=== PATIENT | female | born 1955 | race Caucasian/White ===

== ENCOUNTER 2018-03-17 05:33 | Outpatient (CLI) | payer BC ==
[~2018-03-17] VITALS: Ht 154.9 cm; Wt 83.9 kg
[2018-03-17] MEDS ORDERED: HYDR25TA4 PO (08:52)
== END 2018-03-17 09:05 | disposition home or self-care (01) ==
LOC: PREOP 05:33
PROVIDERS: ATTEND Podiatrist Foot & Ankle Surgery
DX: Z01.818 Encounter for other preprocedural examination (principal)

== ENCOUNTER 2018-03-22 05:52 | Day surgery (SDC) | payer BC ==
[~2018-03-22] VITALS: Ht 154.9 cm; Wt 83.9 kg
[~2018-03-22 05:52] MED LIST: HYDR25TA4 PO
--- OUTSIDE RECORDS SUMMARY | 2018-03-22 05:55 | XMS REPORT ---
Author Candelaria Ramsey [facility] Address [address] [place], [place] [id number] Care Team Providers Care Schedule Supervisor Name Role Phone Candelaria Shen PCP Rayshawn Yadav PreferredProvider Allergies and Adverse Reactions Name Reaction Notes Bee Stings swelling Plan of Treatment Planned Activity Comments Planned Date Planned Time Plan/Goal CBC for General Health Panel 03/03/2018 12:00 AM CMP 03/03/2018 12:00 AM LIPID PANEL 03/03/2018 12:00 AM Mammogram, screening, bilateral 03/03/2018 12:00 AM Medications Active Name Start Date Estimated Completion Date SIG Comments hydrochlorothiazide 25 mg oral tablet 07/14/2017 TAKE ONE TABLET BY MOUTH ONCE DAILY Vitamin D3 2,000 unit oral capsule 03/03/2018 04/02/2018 take 1 capsule by oral route daily for 30 days Name Start Date Expiration Date SIG Comments amoxicillin 500 mg oral capsule 09/09/2016 09/19/2016 take 2 capsules by oral route every 12 hours for 10 days Problem List Description Status Onset Hypertension, Benign Essential Active Vital Signs Date Time BP-Sys(mm[Hg] BP-Kimber(mm[Hg]) HR(bpm) RR(rpm) Temp WT HT HC BMI BSA BMI Percentile O2 Sat(%) 03/03/2018 9:14:00 AM 138 mmHg 98 mmHg 73 bpm 18 rpm 98.1 F 192.125 lbs 61 in 36.3013 kg/m 1.9367 m 98 % 03/17/2017 9:05:00 AM 130 mmHg 80 mmHg 128 bpm 16 rpm 100.7 F 191 lbs 61 in 36.09 kg/m2 1.93 m2 95 % 10/11/2015 7:40:00 PM 128 mmHg 88 mmHg 86 bpm 16 rpm 97.3 F 194 lbs 61 in 36.6556 kg/m 1.9461 m 96 % 04/12/2015 8:03:00 PM 140 mmHg 98 mmHg 72 bpm 18 rpm 97.6 F 196.25 lbs 61 in 37.0807 kg/m 1.96 m2 98 % Social History Name Description Comments Tobacco Never smoker Alcohol Light History of Procedures Date Ordered Description Order Status 04/12/2015 12:00 AM X-RAY EXAM OF KNEE 3 Reviewed 04/12/2015 12:00 AM X-RAY EXAM OF ANKLE Reviewed 03/17/2017 12:00 AM INFLUENZA A/B AG EIA Reviewed Results Summary Date and Description Results 03/17/2017 10:15 AM INFLUENZA A & B NO INFLUENZA A OR B DETECTED History Of Immunizations Name Date Admin Mfg Name Mfg Code Trade Name Lot# Route Inj Vis Given Vis Pub CVX Tdap 1999 Not Entered NE Not Entered Not Entered Not Entered 02/23/201802/23/2018 999 Tdap 11/13/2016 sanofi pasteur PMC ADACEL [id number] Intramuscular Right Deltoid 11/13/2016 04/18/2014 115 Influenza 11/13/2016 sanofi pasteur PMC Fluzone Quadrivalent [id number] Intramuscular Left Deltoid 11/13/2016 09/29/2014 150 ZVL 11/13/2016 Merck & Co., Inc. MSD ZOSTAVAX [id number] Subcutaneous Right Arm 11/13/2016 02/23/2018 121 History of Past Illness Name Date of Onset Comments Hypertension, Benign Essential Chronic pain of left knee Apr 12 2015 8:06PM Chronic pain of right ankle Apr 12 2015 8:06PM Essential hypertension Apr 12 2015 8:06PM Hypertension, Benign Essential Oct 11 2015 7:42PM Fever, unspecified fever cause Mar 17 2017 9:07AM Cough Mar 17 2017 9:07AM Influenza-like illness Mar 17 2017 9:07AM Routine health maintenance Mar 03 2018 9:18AM Breast cancer screening Mar 03 2018 9:18AM Colon cancer screening Mar 03 2018 9:18AM Arthritis Mar 03 2018 9:18AM Payers Insurance Name Company Name Plan Name Plan Number Policy Number Policy Group Number [id number] N/A History of Encounters Visit Date Visit Type Provider 03/03/2018 Office visit 03/03/[address] Candelaria Shen DO 03/17/2017 Office visit Rayshawn Yadav APRN 10/11/2015 Office visit Rayshawn Yadav APRN 04/12/2015 Office visit Rayshawn Yadav APRN
--- OUTSIDE RECORDS SUMMARY | 2018-03-22 05:55 | XMS REPORT ---
Author Author Candelaria Shen [facility] Address [address] [place], [place] [address] Care Team Providers Care Canceling And Cutting Control Clerk Name Role Phone Candelaria Shen PCP Rayshawn Yadav PreferredProvider Allergies and Adverse Reactions Name Reaction Notes Bee Stings swelling Plan of Treatment Planned Activity Comments Planned Date Planned Time Plan/Goal Mammogram, screening, bilateral 03/03/2018 12:00 AM US InterValve (SINGLE ORGAN) 03/04/2018 12:00 AM [facility] 03/16/2018 12:00 AM Medications Active Name Start Date Estimated Completion Date SIG Comments hydrochlorothiazide 25 mg oral tablet 07/14/2017 TAKE ONE TABLET BY MOUTH ONCE DAILY Vitamin D3 2,000 unit oral capsule 03/03/2018 04/02/2018 take 1 capsule by oral route daily for 30 days potassium chloride 20 mEq oral tablet extended release 03/03/2018 04/02/2018 take 1 tablet (20 meq) by oral route 2 times per day with food for 30 days Name Start Date Expiration Date SIG Comments amoxicillin 500 mg oral capsule 09/09/2016 09/19/2016 take 2 capsules by oral route every 12 hours for 10 days Problem List Description Status Onset Hypertension, Benign Essential Active Colon cancer screening Active 03/04/2018 Vital Signs Date Time BP-Sys(mm[Hg] BP-Kimber(mm[Hg]) HR(bpm) RR(rpm) Temp WT HT HC BMI BSA BMI Percentile O2 Sat(%) 03/11/2018 8:40:00 AM 124 mmHg 82 mmHg 80 bpm 18 rpm 97.7 F 193.125 lbs 61 in 36.4903 kg/m 1.9417 m 97 % 03/04/2018 11:21:00 AM 156 mmHg 80 mmHg 73 bpm 20 rpm 97.2 F 192 lbs 61 in 36.28 kg/m2 1.94 m2 03/03/2018 9:14:00 AM 138 mmHg 98 mmHg 73 bpm 18 rpm 98.1 F 192.125 lbs 61 in 36.30 kg/m2 1.94 m2 98 % 03/17/2017 9:05:00 AM 130 mmHg 80 mmHg 128 bpm 16 rpm 100.7 F 191 lbs 61 in 36.0888 kg/m 1.931 m 95 % 10/11/2015 7:40:00 PM 128 mmHg 88 mmHg 86 bpm 16 rpm 97.3 F 194 lbs 61 in 36.66 kg/m2 1.95 m2 96 % 04/12/2015 8:03:00 PM 140 mmHg 98 mmHg 72 bpm 18 rpm 97.6 F 196.25 lbs 61 in 37.0807 kg/m 1.9574 m 98 % Social History Name Description Comments Tobacco Never smoker Alcohol Light History of Procedures Date Ordered Description Order Status 04/12/2015 12:00 AM X-RAY EXAM OF KNEE 3 Reviewed 04/12/2015 12:00 AM X-RAY EXAM OF ANKLE Reviewed 03/17/2017 12:00 AM INFLUENZA A/B AG EIA Reviewed 03/03/2018 12:00 AM COMPLETE CBC W/AUTO DIFF WBC Returned 03/03/2018 12:00 AM COMPREHEN METABOLIC PANEL Returned 03/03/2018 12:00 AM LIPID PANEL Returned 03/03/2018 12:00 AM COMPREHEN METABOLIC PANEL Returned Results Summary Date and Description Results 03/17/2017 10:15 AM INFLUENZA A & B NO INFLUENZA A OR B DETECTED History Of Immunizations Name Date Admin Mfg Name Mfg Code Trade Name Lot# Route Inj Vis Given Vis Pub CVX Tdap 1999 Not Entered NE Not Entered Not Entered Not Entered 02/23/201802/23/2018 999 Tdap 11/13/2016 sanofi pasteur PMC ADACEL [id number] Intramuscular Right Deltoid 11/13/2016 04/18/2014 115 Influenza 11/13/2016 sanofi pasteur PMC Fluzone Quadrivalent [id number] Intramuscular Left Deltoid 11/13/2016 09/29/2014 150 ZVL 11/13/2016 Merck & Co., Inc. MSD ZOSTAVAX [id number] Subcutaneous Right Arm 11/13/2016 02/23/2018 121 History of Past Illness Name Date of Onset Comments Hypertension, Benign Essential Colon cancer screening 03/04/2018 Chronic pain of left knee Apr 12 [...] 2018 9:18AM Arthritis Mar 03 2018 9:18AM Hyponatremia Mar 03 2018 1:15PM Colon cancer screening Mar 04 2018 11:09AM Alkaline phosphatase elevation Mar 11 2018 8:44AM Hypokalemia Mar 11 2018 8:44AM Essential hypertension Mar 11 2018 8:44AM Payers Insurance Name Company Name Plan Name Plan Number Policy Number Policy Group Number [id number]/A History of Encounters Visit Date Visit Type Provider 03/11/[address] Candelaria Shen DO 03/04/2018 Office visit Jay Aguayo DO 03/03/2018 Office visit 03/03/[address] Candelaria Shen DO 03/17/2017 Office visit Rayshawn Yadav APRN 10/11/2015 Office visit Rayshawn Yadav APRN 04/12/2015 Office visit Rayshawn Yadav APRN
--- OUTSIDE RECORDS SUMMARY | 2018-03-22 05:55 | XMS REPORT ---
Author Candelaria Ramsey [facility] Address [address] [place], [place] [address] Care Team Providers Care Ordnance Truck Installation Supervisor Name Role Phone Candelaria Shen PCP Rayshawn Yadav PreferredProvider Allergies and Adverse Reactions Name Reaction Notes Bee Stings swelling Plan of Treatment Planned Activity Comments Planned Date Planned Time Plan/Goal Mammogram, screening, bilateral 03/03/2018 12:00 AM CMP 03/03/2018 12:00 AM Medications Active Name Start [...] Returned 03/03/2018 12:00 AM LIPID PANEL Returned Results Summary Date and Description Results 03/17/2017 10:15 AM INFLUENZA A & B NO INFLUENZA A OR B DETECTED History Of Immunizations Name Date Admin Mfg Name Mfg Code Trade Name Lot# Route Inj Vis Given Vis Pub CVX Tdap 1999 Not Entered NE Not Entered Not Entered Not Entered 02/23/201802/23/2018 999 Tdap 11/13/2016 sanofi pasteur PMC ADACEL [id number] Intramuscular Right Deltoid 11/13/2016 04/18/2014 115 Influenza 11/13/2016 sanofi pasteur PMC Fluzone Quadrivalent [id number] Intramuscular Left Deltoid 11/13/2016 09/29/2014 150 ZVL 11/13/2016 Merck & Co., [employer] MSD ZOSTAVAX [id number] Subcutaneous Right Arm 11/13/2016 02/23/2018 121 History [...] 2018 9:18AM Hyponatremia Mar 03 2018 1:15PM Payers Insurance Name Company Name Plan Name Plan Number Policy Number Policy Group Number Start Date BCBS [facility] [id number] N/A History of Encounters Visit Date Visit Type Provider 03/03/2018 Office visit 03/03/[address] Candelaria Shen DO 03/17/2017 Office visit Rayshawn Yadav APRN 10/11/2015 Office visit Rayshawn Yadav APRN 04/12/2015 Office visit Rayshawn Yadav APRN
--- OUTSIDE RECORDS SUMMARY | 2018-03-22 05:55 | XMS REPORT ---
Author Jay Dinh [facility] Address [address] [place], [place] [id number] Care Team Providers Care Senior Drafter Name Role Phone Jay Aguayo PCP Rayshawn Yadav PreferredProvider Allergies and Adverse Reactions Name Reaction Notes Bee Stings swelling Plan of Treatment Planned Activity Comments Planned Date Planned Time Plan/Goal Mammogram, screening, bilateral 03/03/2018 12:00 AM CMP 03/03/2018 12:00 AM Babelverse (SINGLE ORGAN) 03/04/2018 12:00 AM Medications Active Name Start Date [...] HC BMI BSA BMI Percentile O2 Sat(%) 03/04/2018 11:21:00 AM 156 mmHg 80 mmHg 73 bpm 20 rpm 97.2 F 192 lbs 61 in 36.2777 kg/m 1.936 m 03/03/2018 9:14:00 AM 138 mmHg 98 mmHg [...] 999 Tdap 11/13/2016 sanofi pasteur PMC ADACEL [id number] Intramuscular Right Deltoid 11/13/2016 04/18/2014 115 Influenza 11/13/2016 sanofi pasteur PMC Fluzone Quadrivalent [id number] Intramuscular Left Deltoid 11/13/2016 09/29/2014 150 ZVL 11/13/2016 Merck & Co., [employer] MSD ZOSTAVAX [id number] Subcutaneous Right Arm 11/13/2016 02/23/2018 121 History [...] Colon cancer screening Mar 04 2018 11:09AM Payers Insurance Name Company Name Plan Name Plan Number Policy Number Policy Group Number Start Date BCBS [facility] [id number] N/A History of Encounters Visit Date Visit Type Provider 03/04/2018 Office visit Jay Aguayo DO 03/03/2018 Office visit 03/03/[address] Candelaria Shen DO 03/17/2017 Office visit Rayshawn Yadav APRN 10/11/2015 Office visit Rayshawn Yadav APRN 04/12/2015 Office visit Rayshawn Yadav APRN
--- OUTSIDE RECORDS SUMMARY | 2018-03-22 05:55 | XMS REPORT ---
Author Author Rayshawn Yadav [facility] Address [address] [place], [place] [address] Care Team Providers Care Precinct I Police Sergeant Name Role Phone Rayshawn Yadav PCP Allergies and Adverse Reactions Name Reaction Notes Bee Stings swelling Plan of Treatment Not available. Medications Active Name Start Date Estimated Completion Date SIG Comments hydrochlorothiazide 25 mg oral tablet 10/03/2015 06/29/2016 take 1 tablet (25 mg) by oral route once daily for 90 days Problem List Description Status Onset Hypertension, Benign Essential Active Vital Signs Date Time BP-Sys(mm[Hg] BP-Kimber(mm[Hg]) HR(bpm) RR(rpm) Temp WT HT HC BMI BSA BMI Percentile O2 Sat(%) 10/11/2015 7:40:00 PM 128 mmHg 88 mmHg [...] 12:00 AM X-RAY EXAM OF KNEE 3 Returned 04/12/2015 12:00 AM X-RAY EXAM OF ANKLE Returned Results Summary Not available. History Of Immunizations Not available. History of Past Illness Name Date of Onset Comments Hypertension, Benign Essential Chronic pain of left knee Apr 12 2015 8:06PM Chronic pain of right ankle Apr 12 2015 8:06PM Essential hypertension Apr 12 2015 8:06PM Hypertension, Benign Essential Oct 11 2015 7:42PM Payers Insurance Name Company Name Plan Name Plan Number Policy Number Policy Group Number [id number]/A History of Encounters Visit Date Visit Type Provider 10/11/2015 Office visit Rayshawn Yadav APRN 04/12/2015 Office visit Rayshawn Yadav APRN
--- OUTSIDE RECORDS SUMMARY | 2018-03-22 05:56 | XMS REPORT | Continuity of Care Document ---
Author Author [facility] Organization [facility] Address Unknown Phone Unavailable Allergies Active Description Code Type Severity Reaction Onset Reported/Identified Relationship to Patient Clinical Status Yes No Known Allergies [id number] N /A N/A Yes No Known Drug Allergies [id number] Drug Allergy Unknown N/A 03/17/2018 Medications There is no data. Problems Date Dx Coded Attending Type Code Diagnosis Diagnosed By 03/17/2017 S R05 Cough 03/17/2017 P R509 Fever, unspecified 03/10/2018 S R1013 Epigastric pain 03/10/2018 P R109 Unspecified abdominal pain 03/17/2018 SUSU FORMAN DPM Ot Z01.818 ENCOUNTER FOR OTHER PREPROCEDURAL EXAMIN Procedures There is no data. Results There is no data. Encounters ACCT No. Visit Date/Time Discharge Status Pt. Type Provider Facility Loc./Unit Complaint [id number] 03/16/2018 11:07:27 03/16/2018 23:59:59 CLS Outpatient Jay Aguayo [id number] 03/11/2018 09:27:20 03/11/2018 23:59:59 CLS Outpatient Candelaria Shen [id number] 03/04/2018 10:59:13 03/04/2018 23:59:59 CLS Outpatient Jay Aguayo [id number] 03/03/2018 10:05:53 03/03/2018 23:59:59 CLS Outpatient Candelaria Shen [id number] 03/17/2017 09:50:15 03/17/2017 23:59:59 CLS Outpatient Rayshawn Yadav [id number] 10/11/2015 20:28:05 10/11/2015 23:59:59 CLS Outpatient Rayshawn Yadav [id number] 04/12/2015 20:39:48 04/12/2015 23:59:59 CLS Outpatient Rayshawn Yadav [id number] 03/17/2018 05:33:00 03/17/2018 09:05:00 DIS Outpatient DASIA DPM, SUSU Q Via [facility] PREOP HAMMERTOE 2,3,4, 5 TOES RIGHT FOOT [id number] 03/22/2018 08:00:00 PEN Preadmit DASIA DPM, SUSU Q Via [facility] HAMMERTOE 2,3,4,5 TOES RIGHT FOOT [id number] 03/10/2018 08:39:04 Document Registration [id number] 03/05/2018 00:32:58 Document Registration [id number] 03/04/2018 11:04:03 Document Registration [id number] 03/03/2018 10:09:18 Document Registration [id number] 03/03/2018 10:02:33 Document Registration [id number] 03/17/2017 09:47:26 Document Registration
--- OUTSIDE RECORDS SUMMARY | 2018-03-22 05:56 | XMS REPORT ---
Author Author Rayshawn Yadav [facility] Address [address] [place], [place] [address] Care Team Providers Care Grooming Assistant Name Role Phone Rayshawn Yadav PCP Rayshawn Yadav PreferredProvider Allergies and Adverse Reactions Name Reaction Notes Bee Stings swelling Plan of Treatment Not available. Medications Active Name Start Date Estimated Completion Date SIG Comments hydrochlorothiazide 25 mg oral tablet 06/30/2016 TAKE ONE TABLET BY MOUTH ONCE DAILY Name Start Date Expiration Date SIG Comments hydrochlorothiazide 25 mg oral tablet 10/03/2015 06/29/2016 take 1 tablet (25 mg) by oral route once daily for 90 days amoxicillin 500 mg oral capsule 09/09/2016 09/19/2016 take 2 capsules by oral route every 12 hours for 10 days Problem List Description Status Onset Hypertension, Benign Essential Active Vital Signs Date Time BP-Sys(mm[Hg] BP-Kimber(mm[Hg]) HR(bpm) RR(rpm) Temp WT HT HC BMI BSA BMI Percentile O2 Sat(%) 03/17/2017 9:05:00 AM 130 mmHg 80 mmHg 128 bpm 16 rpm 100.7 F 191 lbs 61 in 36.09 kg/m2 1.93 m2 95 % 10/11/2015 7:40:00 PM 128 mmHg 88 mmHg 86 bpm 16 rpm 97.3 F 194 lbs 61 in 36.6556 kg/m 1.9461 m 96 % 04/12/2015 8:03:00 PM 140 mmHg 98 mmHg 72 bpm 18 rpm 97.6 F 196.25 lbs 61 in 37.08 kg/m2 1.96 m2 98 % Social History Name Description Comments Tobacco Never smoker Alcohol Light History of Procedures Date Ordered Description Order Status 04/12/2015 12:00 AM X-RAY EXAM OF KNEE 3 Reviewed 04/12/2015 12:00 AM X-RAY EXAM OF ANKLE Reviewed 03/17/2017 12:00 AM INFLUENZA A/B AG EIA Returned Results Summary Not available. History Of Immunizations Name Date Admin Mfg Name Mfg Code Trade Name Lot# Route Inj Vis Given Vis Pub CVX Tdap 1999 Not Entered NE Not Entered Not Entered Not Entered 02/23/201702/23/2017 999 Tdap 11/13/2016 sanofi pasteur PMC ADACEL [id number] Intramuscular Right Deltoid 11/13/2016 04/18/2014 115 Influenza 11/13/2016 sanofi pasteur PMC Fluzone Quadrivalent [id number] Intramuscular Left Deltoid 11/13/2016 09/29/2014 150 Zostavax 11/13/2016 Merck & Co., Inc. MSD ZOSTAVAX [id number] Subcutaneous Right Arm 11/13/2016 02/23/2017 121 History of Past Illness Name Date of Onset Comments Hypertension, Benign Essential Chronic pain of left knee Apr 12 2015 8:06PM Chronic pain of right ankle Apr 12 2015 8:06PM Essential hypertension Apr 12 2015 8:06PM Hypertension, Benign Essential Oct 11 2015 7:42PM Fever, unspecified fever cause Mar 17 2017 9:07AM Cough Mar 17 2017 9:07AM Influenza-like illness Mar 17 2017 9:07AM Payers Insurance Name Company Name Plan Name Plan Number Policy Number Policy Group Number Start Date [facility] [id number] N/A History of Encounters Visit Date Visit Type Provider 03/17/2017 Office visit Rayshawn Yadav APRN 10/11/2015 Office visit Rayshawn Yadav APRN 04/12/2015 Office visit Rayshawn Yadav APRN
[2018-03-22] MEDS ORDERED: ceFAZolin INJECTION 1,000 MG in NS (IVPB) 50 ML IV ONE (06:30)
[2018-03-22] MEDS ORDERED: LACTATED RINGERS 1,000 ML IV PRN (06:30)
[2018-03-22] MEDS ORDERED: NS (IVPB) 50 ML ONE (06:42)
[2018-03-22] MEDS ORDERED: ceFAZolin 1,000 MG/10 ML (ANCEF) VIAL ONE (06:42)
[2018-03-22 06:50] VITALS: BP 131/85
[2018-03-22] MEDS ORDERED: fentaNYL INJECTION 100 MCG/2 ML AMP ONE (06:59)
[2018-03-22] MEDS ORDERED: ONDANSETRON 4 MG/2 ML (SDV) Z0FRAN ONE (06:59)
[2018-03-22] MEDS ORDERED: DEXAMETHASONE 10 MG/ML (DECADRON) 1 ML VIAL ONE (06:59)
[2018-03-22] MEDS ORDERED: LIDOCAINE PF 2% 5 ML (XYLOCAINE) VIAL ONE (06:59)
[2018-03-22] MEDS ORDERED: proPOfol 200 MG/20 ML (DIPRIVAN) VIAL IV ONE (06:59)
[2018-03-22] MEDS ORDERED: MIDAZOLAM 2 MG/2 ML (VERSED) VIAL ONE (06:59)
[2018-03-22] MEDS ORDERED: BUPIVACAINE 0.5% 30 ML (SENSORCAINE) VIAL ONE (07:09)
--- NOTE | 2018-03-22 07:32 | Progress Note-Pre Operative ---
Pre-Operative Progress Note H&P Reviewed The H&P was reviewed, patient examined and no changes noted. Date Seen by Provider: Mar 22, 2018 Time Seen by Provider: 07:32 Date H&P Reviewed: Mar 22, 2018 Time H&P Reviewed: 07:32 Pre-Operative Diagnosis: Hammertoes 2,3,4,5 right foot SUSU FORMAN DPM Mar 22, 2018 07:32
[2018-03-22] MEDS ORDERED: SEVOFLURANE (ULTANE) 15 ML INHAL SOLN ONE (09:14)
[2018-03-22] MEDS ORDERED: LACTATED RINGERS 1,000 ML IV SCH (09:22)
--- NOTE | 2018-03-22 09:22 | Progress Note-Post Operative ---
Post-Operative Progess Note Surgeon (s)/Business Performance Advisor (s) Surgeon SUSU FORMAN DPM Business Performance Advisor: none Pre-Operative Diagnosis Hammertoes 2,3,4,5 right foot Post-Operative Diagnosis same Procedure & Operative Findings Date of Procedure 03/22/18 Procedure Performed/Findings Reduction of hammertoes 2, 3, 4, 5 toes, right Anesthesia Type General Estimated Blood Loss Estimated blood loss (mL): Minimal Specimens/Packing Specimens Removed none SUSU FORMAN DPM Mar 22, 2018 09:22
[2018-03-22] MEDS ORDERED: ACHD5005 PO (09:24)
[2018-03-22] MEDS ORDERED: CEPH500C PO (09:24)
[2018-03-22] MEDS ORDERED: HYDROcodone/APAP 5 MG/325 MG (LORTAB) TAB PO PRN (09:30)
--- NOTE | 2018-03-22 09:30 | Anesthesia-General Post-Op ---
General Patient Condition Mental Status/LOC: Same as Preop Cardiovascular: Satisfactory Nausea/Vomiting: Absent Respiratory: Satisfactory Pain: Controlled Complications: Absent Post Op Complications Complications None Follow Up Care/Instructions Patient Instructions None needed. Anesthesia/Patient Condition Patient Condition Patient is doing well, no complaints, stable vital signs, no apparent adverse anesthesia problems. No complications reported per nursing. DEEDEE ESPITIA CRNA Mar 22, 2018 09:30
[2018-03-22] MEDS ORDERED: morphine INJ 10 MG/ML 1ML (SYR OR VIAL) IVP ONE (10:00)
[2018-03-22] MEDS ORDERED: ONDANSETRON 4 MG/2 ML (SDV) Z0FRAN IVP PRN (10:00)
[2018-03-22 10:20] VITALS: BP 145/96
[2018-03-22 10:50] VITALS: BP 160/89
--- NOTE | 2018-03-22 10:51 | Diagnostic Imaging Report ---
EXAMINATION: Right foot at 0940 hours. INDICATION: Postop. TECHNIQUE: AP and lateral views were obtained. COMPARISON: There are no prior studies available for comparison. FINDINGS: There are orthopedic fixation wires longitudinally traversing the phalanges of the second, third, and fourth digits. There has also been an osteotomy of the heads of the proximal phalanges of the second, third, and fourth digits. The orthopedic hardware seems to be in good position. In addition, there has also been an osteotomy of the head of the proximal phalanx of the fifth digit. There is no fracture or acute bony abnormality evident. The soft tissues are unremarkable. IMPRESSION: There are post operative changes involving the forefoot as described above. There is no acute bony abnormality noted. Dictated by: Dictated on workstation # [id number]
[2018-03-22 11:20] VITALS: BP 160/89
--- NOTE | 2018-03-22 11:34 | Physical Therapy Ortho Eval ---
PT Orthopedic Evaluation Type of Surgery Hammertoes 2,3,4,5 right foot Prior Level of Function Current Living Status: Alone Locomotion (Upon Admit): Independent Established Durable Medical Eq: Front Wheeled Walker Subjective Subjective Pt reports she will have family support at home. Entry Into Home: Stairs Without Railing (family will assist) Motor Control Motor Control: Motor Control WNL ROM ROM: WFL Strength Strength: WFL Transfer Transfers (B, C, W/C) (FIM): 5 (pt was mod indep at discharge) Gait Gait Assistive Device: FWW Right Lower Extremity: Right Weight Bearing Status RLE: Partial Weight Bearing Left Lower Extremity: Left Weight Bearing Status LLE: Full Weight Bearing Education on WB through the heel and PWB status. Demosntrated correct maintenance of WB status. Gait (FIM): 4 (post treatment she mod indep with gait. ) Distance (FIM): 3=150 ft Summary/Comments Pt demonstrated understanding of PWB and was able to maintain status during gait. Up/down a curb step with FWW with cues for sequencing. Educated pt and family on sequence on stairs and safe techniques to enter/exit; verbalized understanding and reported no questions. Treatment Rendered Treatment: Gait Train, Step Train Assessment/Goals Goal Time Frame: 1 Visit Plan Treatment Plan: Discharge DC; safe gait and transfers with PWB status. PT/Family Agrees to Plan: Yes Time Time In: 1100 Time Out: 1120 Total Billed Treatment Time: 20 Billed Treatment Time visit EVM 20 GAVINO MARTINEZ PT Mar 22, 2018 11:34
--- NOTE | 2018-03-22 17:33 | OPERATIVE REPORT ---
DATE OF SERVICE: 03/22/2018 SURGEON: Pati Forman DPM. PREOPERATIVE DIAGNOSIS: Hammer digit syndrome, right second, third, fourth and fifth toes. POSTOPERATIVE DIAGNOSIS: Hammer digit syndrome, right second, third, fourth and fifth toes. PROCEDURE: Reduction of hammertoes, right second, third, fourth and fifth toes. WOUND CLASS: Clean. ANESTHESIA: General. HEMOSTASIS: Pneumatic thigh tourniquet at 300 mmHg. INDICATIONS: This 63-year-old female who presents complaining of painful hammertoes, right foot. Conservative therapy has met with unsatisfactory results and the patient is agreeable to surgical intervention after risks and complications were discussed at length. No guarantees were extended to the patient and she is willing to proceed. DESCRIPTION OF PROCEDURE: The patient was brought back to the operating table and placed in a secure supine position. Appropriate time out was performed. A pneumatic thigh tourniquet was placed on the right lower extremity over several layers of padding. General anesthetic was then induced. Local anesthesia was administered to the second, third, fourth and fifth digits, right foot utilizing 0.5% Marcaine and 10 mL utilized in toto with aseptic technique. The right foot was then prepped and draped in normal sterile manner. The right foot was then elevated and allowed to exsanguinate after which the tourniquet was inflated to 300 mmHg. Attention was then directed to the dorsal aspect of the second, third and fourth digits where an incision was made from the metatarsophalangeal joint to the distal interphalangeal joint of the toe. Same procedure was performed to the second, third and fourth digits of the right foot. The incisions were deepened in the same plane with great care to identify and retract all vital neurovascular structures. All the necessary blood vessels were cauterized as encountered. The extensor tendon was incised in a Z slide lengthening type procedure to the second, third and fourth digits. The extensor farmer was released overlying the metatarsophalangeal joint. The medial and lateral collateral ligaments were released to the second, third and fourth metatarsophalangeal joints allowing the proximal phalanx to come down into rectus alignment. Next, a power sagittal saw and power bur were utilized to create a peg to the head of the proximal phalanx and a power bur was utilized to create a hole to the base of the middle phalanx. This allowed for the peg-in-hole type arthrodesis of the proximal interphalangeal joint of the second, third and 4th rays. Next, a 0.054 K-wire was utilized to secure the digits in rectus alignment. The excess K wire was cut and a protective ball placed over the end of the wire to the second, third and fourth digits of the right foot. The extensor tendons were then secured in their length and position and utilizing a 3-0 Vicryl. Superficial closure was then performed with 4-0 Vicryl, skin closure with 4-0 Prolene in a simple interrupted type stitch to the second, third and fourth digits of right foot. Attention was then directed to the right fifth toe where an approximately 2 cm longitudinal linear incision was created. The incision was deepened in the same plane with great care to identify and retract all vital neurovascular structures. All the necessary blood vessels were cauterized as encountered. The incision was deepened down to the extensor tendon where a Z slide lengthening was performed overlying the proximal phalanx. The extensor tendon was reflected proximally and the extensor farmer released. Dorsal capsulorrhaphy was performed to the fifth metatarsophalangeal joint. Attention was then directed to the head of the proximal phalanx where a head was then resected utilizing a power sagittal saw for an arthroplasty. The wound was flushed with copious amounts of normal saline and closure was then performed in layers. Deep closure was performed with 3-0 Vicryl, superficial with 4-0 Vicryl, skin closed with 4-0 Prolene in a horizontal mattress type stitch. The tourniquet was released noting appropriate capillary refill time to all digits of the right foot. Postoperative injection consisted of 12 mL of 0.5% Marcaine injected in the local infusion to the surgical sites. Postoperative dressing consisted of Betadine soaked Adaptic, sterile 4 x 4, sterile Kerlix all secured with Coban wrap. The patient tolerated the anesthesia and procedure well and was transported from the operating room to the recovery area with vital signs stable and vascular status intact to all digits of the right foot. She was given a prescription for Keflex and Vicodin postoperatively. She is to be partial weightbearing in a surgical splint shoe with crutches walker. She will follow up in my office in 10 days' period of time or sooner if necessary. Job ID: [id number] DocumentID: [id number] Dictated Date: 03/22/2018 09:30:57 Moving Worker Date: 03/22/2018 17:33:02 Dictated By: PATI FORMAN DPM
== END 2018-03-22 11:28 | disposition home or self-care (01) ==
LOC: SDC 05:52
PROVIDERS: ATTEND Podiatrist Foot & Ankle Surgery
DX: M20.41 Other hammer toe(s) (acquired), right foot (principal); Z11.2 Encounter for screening for other bacterial diseases; I10 Essential (primary) hypertension; K21.9 Gastro-esophageal reflux disease without esophagitis; Z79.899 Other long term (current) drug therapy; Z80.0 Family history of malignant neoplasm of digestive organs; Z87.891 Personal history of nicotine dependence
CPT/HCPCS: 36415; 73620; 84132; 87081